=== PATIENT | female | born 1995 | race Two or more races ===

== ENCOUNTER 2022-10-31 19:58 | Emergency (ER) | payer OTHER ==
[~2022-10-31] VITALS: Ht 154.9 cm; Wt 81.0 kg
[2022-10-31 20:32] VITALS: BP 146/90
[2022-10-31] MEDS ORDERED: AMOX1TAB16 PO (23:20)
== END 2022-10-31 23:38 | disposition home or self-care (01) ==
LOC: EMS 20:00
DX: S91.351A Open bite, right foot, initial encounter (principal); W54.0XXA Bitten by dog, initial encounter; Y93.89 Activity, other specified; Y92.89 Other specified places as the place of occurrence of the external cause; Y99.8 Other external cause status
CPT/HCPCS: 99283